=== PATIENT | male | born 1970 | race Caucasian/White ===

== ENCOUNTER 2022-01-28 18:57 | Emergency (ER) | payer OTHER | END 2022-01-28 22:23 | disposition left against medical advice (07) | LOC: ED 18:57 | DX: S99.922A Unspecified injury of left foot, initial encounter (principal); W55.12XA Struck by horse, initial encounter; Y93.89 Activity, other specified; Y92.89 Other specified places as the place of occurrence of the external cause; Y99.8 Other external cause status ==

== ENCOUNTER 2025-01-29 12:01 | Emergency (ER) | payer OTHER ==
[~2025-01-29] VITALS: Ht 177.8 cm; Wt 81.6 kg
== END 2025-01-29 14:04 | disposition home or self-care (01) ==
LOC: ED 12:01
DX: S70.01XA Contusion of right hip, initial encounter (principal); S40.011A Contusion of right shoulder, initial encounter; M16.11 Unilateral primary osteoarthritis, right hip; W20.8XXA Other cause of strike by thrown, projected or falling object, initial encounter; Y93.89 Activity, other specified; Y92.89 Other specified places as the place of occurrence of the external cause; Y99.8 Other external cause status